=== PATIENT | female | born 1955 | race Two or more races ===

== ENCOUNTER 2020-07-29 11:05 | Outpatient (CLI) | payer OTHER ==
[2020-07-30] MEDS ORDERED: KATERZIA1 MG/1 ML PO (16:07)
[2020-07-30] MEDS ORDERED: IBERSARTAN PO (16:09)
== END 2020-07-29 19:00 | disposition home or self-care (01) ==
LOC: LAB 11:05
DX: Z20.828 Contact with and (suspected) exposure to other viral communicable diseases (principal)

== ENCOUNTER 2020-07-30 11:00 | Inpatient (IN) | payer OTHER ==
[~2020-07-30] VITALS: Ht 160 cm; Wt 76.2 kg
[2020-07-30] MEDS ORDERED: KATERZIA1 MG/1 ML PO (16:07)
[2020-07-30] MEDS ORDERED: IBERSARTAN PO (16:09)
== END 2020-08-07 12:59 | disposition home or self-care (01) | DRG 740 ==
LOC: OB/GYN 08-04 05:25 → O/R 08-04 05:25 → SURH 08-04 07:00 → OB/GYN 08-04 11:36
PROVIDERS: ADMIT Specialist; ATTEND Specialist
PROC: 0UT20ZZ Resection of Bilateral Ovaries, Open Approach (ICD-10-PCS; 2020-08-04)
PROC: 0UB70ZZ Excision of Bilateral Fallopian Tubes, Open Approach (ICD-10-PCS; 2020-08-04)
PROC: 07BC0ZX Excision of Pelvis Lymphatic, Open Approach, Diagnostic (ICD-10-PCS; 2020-08-04)
PROC: 0UT90ZZ Resection of Uterus, Open Approach (ICD-10-PCS; principal; 2020-08-04 07:00)
DX: C54.1 Malignant neoplasm of endometrium (principal); C78.6 Secondary malignant neoplasm of retroperitoneum and peritoneum; C77.5 Secondary and unspecified malignant neoplasm of intrapelvic lymph nodes; C79.62 Secondary malignant neoplasm of left ovary; C79.61 Secondary malignant neoplasm of right ovary; D64.9 Anemia, unspecified; N73.6 Female pelvic peritoneal adhesions (postinfective)

== ENCOUNTER 2020-08-08 11:09 | Emergency (ER) | payer OTHER ==
[~2020-08-08] VITALS: Ht 160 cm; Wt 76.2 kg
[~2020-08-08 11:09] MED LIST: IBERSARTAN PO; KATERZIA1 MG/1 ML PO
== END 2020-08-08 14:51 | disposition home or self-care (01) ==
LOC: ER 11:09
DX: R10.9 Unspecified abdominal pain (principal)